=== PATIENT | male | born 1945 | race Two or more races ===

== ENCOUNTER 2024-09-29 06:20 | Day surgery (SDC) | payer OTHER ==
[2024-09-16 13:48] VITALS: BP 130/70
[~2024-09-29 06:20] MED LIST: COZAAR50 MG PO; ENVARSUS XR1 MG PO; METROPOL; MILLIPRED5 MG PO; MYCOPHENOLIC A360 MG PO; PEPCID AC20 MG PO; ROSUVASTATIN CA10 MG PO; SEPTRA; TAMS0.4C PO
[2024-09-29] MEDS ORDERED: HEMOSTATIC MATRIX 1 KIT KIT TOP ONE (08:45)
[2024-09-29] MEDS ORDERED: LIDOCAINE HCL 1%/EPINEPHRINE 20ML VIAL IJ ONE (08:45)
[2024-09-29] MEDS ORDERED: DIBUCAINE 15 GM OINT..GM. TUBE RECTAL ONE (08:45)
[2024-09-29] MEDS ORDERED: METRONIDAZOLE/SODIUM CHLORIDE 500 MG/100 ML PIGGYBACK IV ONE (08:45)
[2024-09-29] MEDS ORDERED: CEFTRIAXONE SODIUM 2,000 MG VIAL IV ONE (08:45)
[2024-09-29] MEDS ORDERED: BUPIVACAINE HCL 30 ML VIAL IJ ONE (08:45)
[2024-09-29] MEDS ORDERED: POVIDONE-IODINE 118 ML BOTT TOP ONE (09:00)
[2024-09-29] MEDS ORDERED: PERCOCET 5-3251 EACH PO (09:06)
[2024-09-29] MEDS ORDERED: RECTICARE30 GM TOP (09:06)
[2024-09-29] MEDS ORDERED: TAMSULOSIN HCL 0.4 MG CAP PO ONE (14:00)
[2024-09-29] MEDS ORDERED: MORPHINE SULFATE 4 MG/ML VIAL IV ONE (15:25)
== END 2024-09-29 17:05 | disposition home or self-care (01) ==
LOC: CIR.AMB 06:20
PROVIDERS: ATTEND Surgery
DX: D12.9 Benign neoplasm of anus and anal canal (principal); Z91.018 Allergy to other foods

== ENCOUNTER 2024-10-07 08:37 | Inpatient (IN) | payer OTHER ==
[~2024-10-07] VITALS: Ht 172.7 cm; Wt 77.1 kg
[~2024-10-07 08:37] MED LIST changes: +PERCOCET 5-3251 EACH PO; +RECTICARE30 GM TOP
[2024-10-07] MEDS ORDERED: 0.9 % SODIUM CHLORIDE 1,000 ML IV SCH (09:00)
[2024-10-07 09:22] LABS: HEMATOCRIT 36.9 % (39.0-48.0); HEMOGLOBIN 11.8 g/dL (13-16.00); MEAN CELL VOLUME 94.1 fL (80.0-100.00); MEAN CORPUSCULAR HEMOGLOBIN 30.2 pg (27.00-32.0); MEAN CORPUSCULAR HGB CONC 32.1 g/dl (32.0-36.0); PLATELET COUNT 223 K/uL (150-450); RED BLOOD COUNT 3.92 M/uL (4.00-6.00); RED CELL DISTRIBUTION WIDTH 13.9 % (11.5-14.5)
[2024-10-07 10:24] LABS: CALCIUM 9.3 mg/dL (8.5-10.1); CREATININE SERUM 2.39 mg/dL (0.70-1.30); GFR 26.51; POTASSIUM 3.49 mEq/L (3.5-5.1)
[2024-10-07 12:17] LABS: PH,URINE 5.5 (5.0-8.0); URINE APPEARANCE Turbid; URINE BILIRRUBIN Negative (NEGATIVE); URINE BLOOD Moderate; URINE COLOR Yellow; URINE GLUCOSE Negative (NEGATIVE); URINE KETONE Trace (NEGATIVE); URINE LEUKOCYTE Moderate; URINE NITRATE Negative; URINE UROBILINOGEN 0.2 E.U./dl
[2024-10-07 12:21] LABS: URINE CAST 21.27 uL (0.0-1.40); URINE EPITHELIAL CELLS 32.9 uL (0.0-38.8); URINE RBC 2.6 uL (0.0-20.8); URINE WBC 2113.1 uL (0.0-23.2)
[2024-10-07 12:29] LABS: URINE PROTEIN 100 (NEGATIVE)
[2024-10-07 12:30] LABS: URINE BACTERIA > 9821.5 uL (0.0-1933)
[2024-10-07] MEDS ORDERED: CEFTRIAXONE SODIUM 2,000 MG VIAL IV ONE (14:30)
[2024-10-07] MEDS ORDERED: PANTOPRAZOLE SODIUM 40 MG/VIAL VIAL IV SCH (15:59)
[2024-10-07] MEDS ORDERED: ONDANSETRON HCL 4 MG in 0.9 % SODIUM CHLORIDE 50 ML IV PRN (16:00)
[2024-10-07] MEDS ORDERED: ACETAMINOPHEN 500 MG GEL..CAP PO PRN (16:00)
[2024-10-07] MEDS ORDERED: POTASSIUM CHLORIDE 20MEQ/100ML H2O PB IV ONE (16:15)
[2024-10-07] MEDS ORDERED: ENALAPRILAT DIHYDRATE 1.25 MG/ML VIAL IV PRN (16:15)
[2024-10-07] MEDS ORDERED: RINGERS SOLUTION,LACTATED 1,000 ML IV SCH (16:15)
[2024-10-07 16:43] VITALS: BP 130/72
[2024-10-07] MEDS ORDERED: ATORVASTATIN CALCIUM 20 MG TABLET PO SCH (17:00)
[2024-10-08 00:27] VITALS: BP 150/66; O2SAT 96
[2024-10-08 08:00] VITALS: BP 129/70; O2SAT 96
[2024-10-08 08:12] LABS: ALBUMIN 2.9 gm/dL (3.4-5.0); BILIRUBIN TOTAL 1.11 mg/dL (0.3-1.2); CALCIUM 8.8 mg/dL (8.5-10.1); CREATININE SERUM 2.6 mg/dL (0.70-1.30); GFR 24.05; GLOBULINA 2.9 G/DL (2.4-3.5); MAGNESIUM 1.6 mg/dL (1.8-2.4); PHOSPHOROUS 3.3 mg/dL (2.5-4.9); POTASSIUM 4.36 mEq/L (3.5-5.1); TOTAL PROTEIN 5.8 gm/dL (6.4-8.2)
[2024-10-08 08:39] LABS: HEMATOCRIT 36.1 % (39.0-48.0); HEMOGLOBIN 11.5 g/dL (13-16.00); MEAN CELL VOLUME 95.7 fL (80.0-100.00); MEAN CORPUSCULAR HEMOGLOBIN 30.5 pg (27.00-32.0); MEAN CORPUSCULAR HGB CONC 31.9 g/dl (32.0-36.0); PLATELET COUNT 209 K/uL (150-450); RED BLOOD COUNT 3.77 M/uL (4.00-6.00); RED CELL DISTRIBUTION WIDTH 13.6 % (11.5-14.5)
[2024-10-08] MEDS ORDERED: LOSARTAN POTASSIUM 50 MG TABLET PO SCH (09:00)
[2024-10-08] MEDS ORDERED: PREDNISONE 5 MG TABLET PO SCH (09:00)
[2024-10-08] MEDS ORDERED: METOPROLOL SUCCINATE 50 MG TAB.SR.24H PO SCH (09:00)
[2024-10-08] MEDS ORDERED: ENOXAPARIN SODIUM 30 MG/0.3 ML SYRINGE SUBCUTANEO SCH (09:00)
[2024-10-08] MEDS ORDERED: TAMSULOSIN HCL 0.4 MG CAP PO SCH (09:00)
[2024-10-08] MEDS ORDERED: CEFTRIAXONE SODIUM 2,000 MG VIAL IV SCH (09:00)
[2024-10-08] MEDS ORDERED: MAGNESIUM SULFATE IN WATER 4 GM/100 ML PIGGYBACK IV NR (11:30)
[2024-10-08 12:00] VITALS: BP 118/72; O2SAT 96
[2024-10-08 16:45] VITALS: BP 115/72; O2SAT 95
[2024-10-08] MEDS ORDERED: TACROLIMUS 1 MG PO SCH (17:00)
[2024-10-08] MEDS ORDERED: MEROPENEM 500 MG/VIAL VIAL IV SCH (17:00)
[2024-10-08] MEDS ORDERED: MYFORTIC 360 MG PO SCH (17:00)
[2024-10-09 00:08] VITALS: BP 147/68; O2SAT 97
[2024-10-09 08:00] VITALS: BP 150/78; O2SAT 97
[2024-10-09 08:30] LABS: ALBUMIN 2.6 gm/dL (3.4-5.0); BILIRUBIN TOTAL 0.8 mg/dL (0.3-1.2); CALCIUM 8.7 mg/dL (8.5-10.1); CREATININE SERUM 2.56 mg/dL (0.70-1.30); GFR 24.49; GLOBULINA 3.2 G/DL (2.4-3.5); POTASSIUM 3.82 mEq/L (3.5-5.1); TOTAL PROTEIN 5.8 gm/dL (6.4-8.2)
[2024-10-09] MEDS ORDERED: PATIENTS OWN MEDICATION (MEDICAMENTO EN PISO) PO SCH ×2 (09:00→17:00)
[2024-10-09 12:19] LABS: HEMATOCRIT 33.2 % (39.0-48.0); HEMOGLOBIN 10.6 g/dL (13-16.00); MEAN CELL VOLUME 94.1 fL (80.0-100.00); MEAN CORPUSCULAR HEMOGLOBIN 30.1 pg (27.00-32.0); PLATELET COUNT 210 K/uL (150-450); RED BLOOD COUNT 3.53 M/uL (4.00-6.00); RED CELL DISTRIBUTION WIDTH 14.1 % (11.5-14.5)
[2024-10-09 17:00] VITALS: BP 150/83; O2SAT 95
[2024-10-09] MEDS ORDERED: AMLODIPINE BESYLATE 5 MG TABLET PO SCH (17:05)
[2024-10-10 00:36] VITALS: BP 149/70; O2SAT 97
[2024-10-10 07:43] LABS: ALBUMIN 2.5 gm/dL (3.4-5.0); BILIRUBIN TOTAL 0.85 mg/dL (0.3-1.2); CALCIUM 8.6 mg/dL (8.5-10.1); CREATININE SERUM 2.32 mg/dL (0.70-1.30); GFR 27.43; GLOBULINA 2.9 G/DL (2.4-3.5); PHOSPHOROUS 2.6 mg/dL (2.5-4.9); POTASSIUM 3.59 mEq/L (3.5-5.1); TOTAL PROTEIN 5.4 gm/dL (6.4-8.2)
[2024-10-10 08:00] VITALS: BP 158/77; O2SAT 95
[2024-10-10 16:00] VITALS: BP 145/78; O2SAT 95
[2024-10-11] VITALS: BP 125/64; O2SAT 96
[2024-10-11 08:00] VITALS: BP 168/71; O2SAT 96
[2024-10-11] MEDS ORDERED: AMLODIPINE BESYLATE 5 MG TABLET PO STA (10:12)
[2024-10-12] MEDS ORDERED: AMLODIPINE BESYLATE 10 MG TABLET PO SCH (09:00)
[2024-10-17 09:48] LABS: BB 0 % (0); MM 100 % (97-100); c mb 0 % (0-3); macro t 0 % (Not Observed); macro tyoe 2 0 % (Not Observed); total ck 190 U/L (41-331)
== END 2024-10-11 13:57 | disposition designated cancer center or children's hospital (05) | DRG 690 ==
LOC: ER 08:37 → SURG 16:13 → SEC-K 16:13 → MEDI 23:18 → SURG 10-08 02:03
PROVIDERS: Emergency Medicine; Internal Medicine; ADMIT Internal Medicine; ATTEND Internal Medicine
PROC: BW21ZZZ Computerized Tomography (CT Scan) of Abdomen and Pelvis (ICD-10-PCS; principal; 2024-10-07)
DX: N39.0 Urinary tract infection, site not specified (principal); N18.5 Chronic kidney disease, stage 5; D84.9 Immunodeficiency, unspecified; I10 Essential (primary) hypertension